=== PATIENT | male | born 1980 ===

== ENCOUNTER 2019-07-19 20:40 | Observation (INO) | payer BC, OTHER ==
[2019-07-19 21:24] LABS: CHLORIDE,CL 103 mmol/L (98-107); SODIUM,NA 140 mmol/L (136-145)
--- NOTE | 2019-07-19 21:28 | EDM.PDOC ---
ED HPI GENERAL MEDICAL PROBLEM - General Chief Complaint: Trauma Stated Complaint: AMBULANCE Time Seen by Provider: 07/19/19 20:40 Source of Information: Reports: Patient, EMS History Limitations: Reports: No Limitations - History of Present Illness INITIAL COMMENTS - FREE TEXT/NARRATIVE: ED via [facility], Patient report to have fallen on ice while ice fishing and hit back of head, Bystander reported ot EMS heard the thump of fall and turned around, patient awake, Did not report loss of consciousness. Patient confused, unable to recall date or events prior in day, unsure of age. Hx of MS, reported routine MRI done in [place] earlier this am. Ambulatory from ice to ambulance Headache Pain Score (Numeric/FACES): 2 - Related Data Allergies Allergy/AdvReac Type Severity Reaction Status Date / Time No Known Drug Allergies Allergy Unknown none Verified 07/19/19 23:51 Home Meds: Home Meds Natalizumab [Tysabri] 600 mg IV ASDIRECTED 07/19/19 [History] methylPREDNISolone Sod Succ [Solu-MEDROL] 100 mg IVPUSH ASDIRECTED 07/19/19 [ History] Review of Systems - Review of Systems Review Of Systems: Comprehensive ROS is negative, except as noted in HPI. ED EXAM, GENERAL - Physical Exam Exam: See Below Exam Limited By: No Limitations General Appearance: Alert, Anxious (repetative questions), Mild Distress Eye Exam: Bilateral Eye: EOMI, PERRL (4) Ears: Normal External Exam, Normal TMs Ear Exam: Bilateral Ear: Canal Normal Nose: Normal Inspection Throat/Mouth: Normal Inspection Head: Normocephalic, Other (tenderness and swelling to occipital area) Neck: Normal Inspection. No: Tender Lateral, Tender Midline Respiratory/Chest: No Respiratory Distress, Lungs Clear, Normal Breath Sounds Cardiovascular: Normal Peripheral Pulses, Regular Rate, Rhythm, No Edema GI/Abdominal: Normal Bowel Sounds, Soft, Non-Tender Extremities: Normal Inspection, Normal Range of Motion. No: Limited Range of Motion Neurological: Alert, Oriented (person, unable to estimate age), Memory Loss Recent Events, Other (GCS 14 ). No: Normal Cognition Psychiatric: Normal Affect, Normal Mood Skin Exam: Warm, Dry, Intact, Normal Color Course - Vital Signs Last Recorded V/S: Last Vital Signs Temp 99.5 F 07/20/19 02:00 Pulse 69 07/20/19 02:00 Resp 18 07/20/19 02:00 BP 120/72 07/20/19 02:00 Pulse Ox 98 07/20/19 02:00 - Orders/Labs/Meds Orders: Medication Orders Acetaminophen (Tylenol) 650 mg PO Q4H PRN PRN Reason: Pain (Mild 1-3)/fever Last Admin: 07/19/19 23:52 Dose: 650 mg Ondansetron HCl (Zofran Odt) 4 mg PO Q4H PRN PRN Reason: nausea, able to take PO Oxycodone/Acetaminophen (Percocet 325-5 Mg) 1 tab PO Q4H PRN PRN Reason: Pain (moderate 4-6) Sodium Chloride (Saline Flush) 10 ml FLUSH ASDIRECTED PRN PRN Reason: Keep Vein Open Labs: Laboratory Tests 07/19/19 07/19/19 07/19/19 Range/Units 20:46 20:46 20:46 WBC 12.1 H (5.0-10.0) 10^3/uL RBC 5.12 (4.6-6.2) 10^6/uL Hgb 16.0 (14.0-18.0) g/dL Hct 47.0 (40.0-54.0) % MCV 91.8 (80-100) fL MCH 31.3 (27.0-34.0) pg MCHC 34.0 (33.0-35.0) g/dL Plt Count 243 (150-450) 10^3/uL Neut % (Auto) 73.8 (42.2-75.2) % Lymph % (Auto) 15.9 L (20.5-50.1) % [place]he % (Auto) 9.4 H (2-8) % Eos % (Auto) 0.7 L (1.0-3.0) % Baso % (Auto) 0.2 (0.0-1.0) % PT 9.3 (9.0-12.0) SEC INR 0.9 (0.9-1.2) Sodium 140 (136-145) mmol/L Potassium 4.0 (3.5-5.1) mmol/L Chloride 103 (98-107) mmol/L Carbon Dioxide 27 (21-32) mmol/L Anion Gap 14.0 H (7-13) mEq/L BUN 18 (7-18) mg/dL Creatinine 0.90 (0.70-1.30) mg/dL Est Cr Clr Drug Dosing TNP Estimated GFR (MDRD) > 60 BUN/Creatinine Ratio 20.0 (No establ ref range) Glucose 99 (74-99) mg/dL Calcium 8.7 (8.5-10.1) mg/dL Magnesium 1.9 (1.8-2.4) mg/dL Total Bilirubin 0.3 (0.2-1.0) mg/dL AST 15 (15-37) U/L ALT 37 (16-63) U/L Alkaline Phosphatase 67 (46-116) U/L Total Protein 7.4 (6.4-8.2) g/dL Albumin 4.3 (3.4-5.0) g/dL Globulin 3.1 Albumin/Globulin Ratio 1.4 Meds: Medications Generic Name Dose Route Start Last Admin Trade Name Freq PRN Reason Stop Dose Admin Acetaminophen 650 mg 07/19/19 22:18 07/19/19 23:52 Tylenol PO 650 mg Q4H PRN Administration Pain (Mild 1-3)/fever Ondansetron HCl 4 mg 07/19/19 22:18 Zofran Odt PO Q4H PRN nausea, able to take PO Oxycodone/Acetaminophen 1 tab 07/19/19 22:18 Percocet 325-5 Mg PO Q4H PRN Pain (moderate 4-6) Sodium Chloride 10 ml 07/19/19 22:18 Saline Flush FLUSH ASDIRECTED PRN Keep Vein Open - Radiology Interpretation Free Text/Narrative:: Head CT negative Cervical spine no acute fracture or dislocation, see reports - Re-Assessments/Exams Free Text/Narrative Re-Assessment/Exam: 07/19/19 21:57 2106 C- spine cleared, HOB elevated [address] Yoo enterprise resource planning consultant Hospitalist for [facility]. Does not feel patient meets any admission or transfer criteria. Report of MRI from this am "stable MS, no active demyelination identified. Comparison to 08/03/18. Recent infusion Tysabri and steroid on 07/16/19. Telephone contact with Mary , informed of results of labs and scans. Informed her patient continues with some mild confusion but is improving. Dr Payne, accepting patient for observation.. 07/19/19 22:05 Departure - Departure Time of Disposition: 22:10 Disposition: Refer to Observation Condition: Good Clinical Impression: Concussion Qualifiers: Encounter type: initial encounter Loss of consciousness presence/duration: without LOC Qualified Code(s): S06.0X0A - Concussion without loss of consciousness, initial encounter - Discharge Information *PRESCRIPTION DRUG MONITORING PROGRAM REVIEWED*: No *COPY OF PRESCRIPTION DRUG MONITORING REPORT IN PATIENT SHIVA: No Sepsis Event Note - Focused Exam Date Exam was Performed: 07/20/19 Time Exam was Performed: 04:16
[2019-07-19] MEDS ORDERED: Ondansetron 4 MG Tab.DIS PO PRN (22:18)
[2019-07-19] MEDS ORDERED: Sodium Chloride 0.9% 10 ML Syringe FLUSH PRN (22:18)
[2019-07-19] MEDS ORDERED: Acetaminophen/oxyCODONE 325-5 MG Tab PO PRN (22:18)
--- NOTE | 2019-07-19 23:30 | HP ---
CHIEF COMPLAINT: History of fall, hitting his head. HISTORY OF PRESENT ILLNESS: The patient is a 39-year-old male who was brought in by [facility] because the patient had fallen on ice while ice fishing and hit back of his head. Bystander reported to the EMS and she heard a thump and a fall and turned around and the patient was awake and did not report loss of consciousness, but the patient was confused, unable to recall date of events prior to today, and the patient was unsure why he is in [place]. The patient denies though any headache, chest pain, shortness of breath, fever, chills, abdominal pain, nor any other complaints. PAST MEDICAL HISTORY: Remarkable for MS, and the patient had a routine MRI done in [place] earlier this morning. REVIEW OF SYSTEMS: As in HPI. The rest of the review of systems negative. MEDICATIONS: Infusion for MS. Otherwise, not on any regular oral medication. FAMILY HISTORY: Noncontributory. PHYSICAL EXAMINATION: General: The patient is alert, oriented to place, but not to date, not in any acute distress. HEENT: Remarkable for a subcutaneous lump in the occipital area. Pupils equal. Extraocular muscles are intact. No facial droop. No C-spine tenderness. Heart: Regular rate and rhythm. Normal S1 and S2. No gallops. No rubs. Lungs: Equal bilaterally. No crackles. No wheezing. Abdomen: Moderately obese, but soft, nontender. Bowel sounds positive. Extremities: Negative for any pedal edema. No calf tenderness. No gross deformities. Neurologic: Negative for any lateralizing signs. LABORATORY WORKUP: CBC: WBC 12.1, hemoglobin is 16, hematocrit is 47, platelets are 243. Comp panel: Anion gap is 14. The rest of the panel unremarkable. CAT scan of the head: Official result, no acute intracranial process. CT of the C-spine negative for any acute fractures or dislocations. ADMITTING DIAGNOSES: 1. History of fall with head concussion. 2. Confusion secondary to history of fall with head concussion. 3. History of multiple sclerosis. PLAN: The patient is going to be admitted to observation. He will be on neuro checks and the rest of the management as necessary. The patient is a full code. [facility] /[id number]
[2019-07-19] MEDS: Acetaminophen 325 MG Tab PO PRN (23:52)
--- NOTE | 2019-07-20 12:10 | DISCH ---
FINAL DIAGNOSES: 1. History of fall with head concussion. 2. Confusion secondary to head concussion. 3. History of multiple sclerosis. BRIEF HISTORY OF PRESENT ILLNESS: Please see H and P. PERTINENT LAB, X-RAY, AND OTHER TESTS ON ADMISSION: See H and P. HOSPITAL COURSE: The patient was admitted to observation. He was placed on neuro checks overnight, and the patient did well and neuro checks were unremarkable and the patient's confusion slowly improved, and he was subsequently discharged. CONDITION ON DISCHARGE: Improved. [facility] /[id number]
--- NOTE | 2019-07-22 12:08 | PN ---
DATE: 07/20/2019 SUBJECTIVE: The patient did well overnight. Neuro checks have been unremarkable and the patient this morning is slowly regaining the confusion and forgetfulness. The patient this morning is alert and oriented x3. The patient denies any headache, chest pain, shortness of breath, or any other complaints. OBJECTIVE: Vital Signs: Blood pressure is 137/80, pulse of 69, respirations of 16, temperature of 98.8, saturations 98%. SHEENT: Normocephalic. There are pink palpebral conjunctivae. Sclerae anicteric. Neck: No JVD. No lymphadenopathy. Heart: Regular rate and rhythm. Normal S1 and S2. No gallops. No rubs. Lungs: Equal bilaterally. No crackles. No wheezing. Abdomen: Soft, nontender. Bowel sounds positive. Extremities: Negative for any pedal edema. No calf tenderness. Neurologic: Negative for any lateralizing sign. PLAN: We will start him on his diet and we will increase his activity, and if he continues to do well, anticipate discharge later today. [facility] /[id number]
== END 2019-07-20 10:30 | disposition home or self-care (01) ==
LOC: DL.ED 20:40 → DL.MS 21:53
PROVIDERS: ADMIT Internal Medicine; ATTEND Internal Medicine
DX: S06.0X0A Concussion without loss of consciousness, initial encounter (principal); Z86.69 Personal history of other diseases of the nervous system and sense organs; W00.9XXA Unspecified fall due to ice and snow, initial encounter; Y93.29 Activity, other involving ice and snow
CPT/HCPCS: 36415; 70450; 72125; 80053; 83735; 85025; 85610; 99285; A9270; G0378